=== PATIENT | female | born 1945 | race Caucasian/White ===

== ENCOUNTER 2016-11-17 12:10 | Day surgery (SDC) | payer MEDICARE ==
[2016-11-17 12:45] VITALS: BP 115/65; PULSE 74; RESP 20; TEMP 98.2
--- NOTE | 2016-11-17 14:31 | US ---
ULTRASOUND GUIDED FNA THYROID BIOPSY: CLINICAL HISTORY: 1.5 and 1.2 cm right thyroid nodules FINDINGS: The procedure was explained to the patient. The risks, complications, benefits and alternatives were discussed and any questions were answered. Informed consent was obtained. Patient was placed supin e on the ultrasound table and prepped and draped in the usual sterile fashion. Utilizing a 25 gauge needle, five passes were made into the 2 requested thyroid nodules.. Patient was stable throughout the procedure. Pathology is pending. All elements of maximal barrier technique were utilized. IMPRESSION: 1. Successful ultrasound guided FNA thyroid biopsy.
== END 2016-11-17 14:05 | disposition home or self-care (01) ==
LOC: RADPROMAIN 12:10
PROVIDERS: ATTEND Family Medicine
DX: E04.1 Nontoxic single thyroid nodule (principal)
CPT/HCPCS: 10022; 36415; 76098; 76942; 88173; 88305

== ENCOUNTER → 2018-02-17 | Outpatient (CLI) | payer MEDICARE ==
--- NOTE | 2018-02-17 18:55 | US ---
EXAMINATION TYPE: US carotid duplex BILAT DATE OF EXAM: 02/17/2018 COMPARISON: NONE CLINICAL HISTORY: G43.819 Migraine, intractable, without status...... EXAM MEASUREMENTS: RIGHT: Peak Systolic Velocity (PSV) cm/sec ----- Right CCA: 66.8 ----- Right ICA: 57.2 ----- Right ECA: 55.8 ICA/CCA ratio: 0.9 RIGHT: End Diastole cm/sec ----- Right CCA: 29.3 ----- Right ICA: 31.9 ----- Right ECA: 21.5 LEFT: Peak Systolic Velocity (PSV) cm/sec ----- Left CCA: 58.1 ----- Left ICA: 63.1 ----- Left ECA: 52.4 ICA/CCA ratio: 1.1 LEFT: End Diastole cm/sec ----- Left CCA: 23.2 ----- Left ICA: 34.6 ----- Left ECA: 14.0 VERTEBRALS (direction of flow): Right Vertebral: Antegrade Left Vertebral: Antegrade Rhythm: Normal IMPRESSION: No significant stenosis seen, no elevated velocities. Criteria for Assigning % of Stenosis / Diameter reduction (Estimation based on the indirect measurements of the internal carotid artery velocities (ICA PSV). 1. Normal (no stenosis)=ICA PSV < 125 cm/s: ratio < 2.0: ICA EDV<40 cm/s. 2. Less than 50% stenosis=ICA PSV < 125 cm/s: ratio < 2.0: ICA EDV<40 cm/s. 3. 50 to 69% stenosis=ICA PSV of 125 to 230 cm/s: ration 2.0 ? 4.0: ICA EDV 40-100 cm/s. 4. Greater than 70% stenosis to near occlusion= ICA PSV > 230 cm/s: ratio > 4.0: ICA EDV > 100 cm/s. 5. Near occlusion= ICA PSV velocities may be low or undetectable: variable ratio and ICA EDV. 6. Total occlusion=unable to detect flow.
== END | disposition home or self-care (01) ==
LOC: RADUSWWP 14:54
PROVIDERS: ATTEND Family Medicine
DX: G43.819 Other migraine, intractable, without status migrainosus (principal)
CPT/HCPCS: 93880

== ENCOUNTER → 2018-08-17 | Outpatient (CLI) | payer MEDICARE ==
[2018-08-17 12:41] VITALS: BP 107/78; PULSE 71; TEMP 98.1; BMI 20.5
--- NOTE | 2018-08-17 13:31 | P.PN ---
Progress Note - Text Progress Note Date: 08/17/18 Chief Complaint: vulvar pruritus since 08/08/2018. HPI: this is a 73-year-old with an LMP of 1988. She is status post [facility] for benign reasons. The patient had a craniotomy procedure for a brain tumor on 08/01/2018. She was discharged home on 08/05/2018. On 08/08/2018 she developed vulvar pruritus and a whitish discharge. The symptoms progressively got worse and she went to an urgent care clinic on 08/14/2018. She was prescribed Diflucan and took one pill on 08/14/2018 and 08/16/2018. The symptoms did improve slightly, but she still is having some pruritus. She has not looked to see if there is still a discharge. The last time she used her estrogen vaginal cream was on 08/09/18. ROS: she has not had fever or weakness. : she denies dysuria, but the skin does feel irritated when she wipes. PE: Blood pressure: 107/78, Height: 5'7", Weight: 123 pounds, Temperature: 1, Pulse: 71. This is a well developed, well nourished, white female who is alert and orientedx3, in no acute distress. External genitalia reveals mild to moderate atrophy with minimal erythema. There are no focal lesions. The vagina does reveal a small amount of sick whitish discharge without odor. There is no evidence of prolapse. Wet alessandro are negative for trichomonas or clue cells. Hyphae is present. Impression: 1. Candidate vaginitis, partially treated with Diflucan. This may have developed secondary to perioperative antibiotics which may have been used at the time of her craniotomy. Plan: 1. Terazol 3 cream intravaginally QHS times 3 days. I will also give her a prescription for Kenalog 0.1% cream which she continues externally PRN for vulvar pruritus. The electronic prescription will be sent to [facility] pharmacy in [place]. 2. The patient is to call she has problems. She will also return in October for her annual examination. Time spent with the patient: 15 minutes
== END | disposition home or self-care (01) ==
LOC: WWCWWP 11:37
PROVIDERS: ATTEND Obstetrics & Gynecology
DX: Z53.9 Procedure and treatment not carried out, unspecified reason (principal)

== ENCOUNTER → 2018-10-11 | Outpatient (CLI) | payer MEDICARE ==
[2018-10-11 14:10] VITALS: BP 129/77; PULSE 62; TEMP 96.3; BMI 24.0
--- NOTE | 2018-10-11 14:56 | P.HPOB ---
History of Present Illness H&P Date: 10/11/18 Chief Complaint: The patient is here for her routine gynecologic exam and mammogram. This is a 73-year-old with an LMP of 1988. The patient is status post [facility] for benign reasons. She is without gynecologic complaints. She continues to do well with estradiol cream which she uses for vaginal discomfort and vaginal dryness with sexual activity. Review of Systems Weight has been stable. She denies respiratory, cardiac and G.I. problems. She denies maltreatment or problems with falling. : she denies any significant problems with urinary leakage. 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 Hearing loss after her 2018 had surgery. PAST [employer] HISTORY: She has no history of STDs. She is status post [facility] for benign reasons. History of Any Multi-Drug Resistant Organisms: None Reported Past Surgical History: Hysterectomy ([facility] in 1988), Tonsillectomy Additional Past Surgical History / Comment(s): eye, upper lower eye lid and lasic surgery, endoscopy, colonoscopy 2016(2nd), head surgery for a benign osseous mass 07/2018. Past Anesthesia/Blood Transfusion Reactions: No Reported Reaction Additional Past Anesthesia/Blood Transfusion Reaction / Comment(s): no blood transfusions Past Psychological History: No Psychological Hx Reported Smoking Status: Never smoker Past Alcohol Use History: Rare Past Drug Use History: None Reported Additional History: She has been since 1981 and is sexually active. - Past Family History Father Family Medical History: Chest Pain / Angina, Hyperlipidemia, Hypertension, Myocardial Infarction ([place]) Mother Additional Family Medical History / Comment(s): from [facility] Medications and Allergies Home Medications Medication Instructions Recorded Confirmed Type Estradiol Cream [Estrace Cream] 1 gm VAGINAL Q3D 09/20/14 10/11/18 History Calcium Carbonate [Calcium] 600 mg PO DAILY 11/06/16 10/11/18 History Cholecalciferol (Vitamin D3) 10,000 unit PO DAILY 11/06/16 10/11/18 History [Vitamin D3] Glucosam/Willie-Msm1/C/Romeo/Bosw 2 tab PO DAILY 11/06/16 10/11/18 History [Glucosamine-Chondroitin Tablet] Multivitamins, Thera [Multivitamin] 1 tab PO DAILY 11/06/16 10/11/18 History Propylene Glycol/Peg 400/Pf 1 each OP DAILY 11/06/16 10/11/18 History [Systane 0.3-0.4% Eye Drops] Vitamin E (Dl,Tocopheryl Acet) 400 unit PO DAILY 11/06/16 10/11/18 History [Vitamin E] Allergies Allergy/AdvReac Type Severity Reaction Status Date / Time No Known Allergies Allergy Verified 10/11/18 14:10 Exam Vital Signs Temp Pulse BP 10/11/18 13:47 96.3 F L 62 129/77 Intake and Output 10/10/18 10/11/18 10/11/18 22:59 06:59 14:59 Other: Weight 56.699 kg Height 5 feet 0.5 inches, weight 125 pounds, BMI 24.0. This is a well-developed well-nourished white female who is alert and oriented times 3 in no acute distress. HEENT: she is mildly hard of hearing. HEENT is otherwise within normal limits. NECK: Supple without mass or thyromegaly. CHEST AND LUNGS: Clear to auscultation. HEART: Regular rate and rhythm. BREASTS: Are without mass or discharge. AXILLARY EXAM: Negative for adenopathy. BACK: Negative for CVA tenderness. ABDOMEN: Soft, nontender, without palpable masses. PELVIC EXAM: External genitalia appears normal with mild to moderate atrophy. Vagina appears normal with mild to moderate atrophy. There is no evidence of prolapse. Bimanual examination is negative for mass or tenderness. RECTAL EXAM: Rectovaginal exam is negative for mass or tenderness and is negative for occult blood. EXTREMITIES: Nontender. IMPRESSION: 1. 73-year-old menopausal female status post SARAI for benign reasons with normal gynecologic exam. 2. Improved vaginal dryness with estrogen vaginal cream. PLAN: 1. Pap smears have been discontinued. 2. Self breast awareness was discussed with the patient. 3. Screening mammogram will be done today. 4. She did receive a flu shot this fall. 5. Continue estradiol vaginal cream. The electronic prescription will be sentenced to [facility] pharmacy. 6.Osteoporosis prevention was discussed. I have stressed the importance of adequate calcium, vitamin D and regular exercise. Recommended amounts of calcium and vitamin D were also discussed. She had a normal bone density test on 05/07/2016 and this will be repeated in approximately 2020. 7. She will return in one year.
--- NOTE | 2018-10-13 13:43 | MM ---
Reason for exam: screening (asymptomatic). Last mammogram was performed 1 year ago. History: Patient is postmenopausal. Benign stereotactic core biopsy of the right breast, 1979. Physical Findings: A clinical breast exam by your physician is recommended on an annual basis and results should be correlated with mammographic findings. MG 3D Screening Mammo W/Cad Bilateral CC and MLO view(s) were taken. Prior study comparison: October 19, 2017, right breast MG 3d work up w/cad RT. October 06, 2017, bilateral MG 3d screening mammo w/cad. The breast tissue is heterogeneously dense. This may lower the sensitivity of mammography. Previous mammotome biopsy in the left breast. There is chronic nodularity in the left upper outer quadrant. No significant changes when compared with prior studies. ASSESSMENT: Benign, BI-RAD 2 RECOMMENDATION: Routine screening mammogram of both breasts in 1 year.
== END | disposition home or self-care (01) ==
LOC: WWCWWP 13:40
PROVIDERS: ATTEND Obstetrics & Gynecology
DX: Z12.31 Encounter for screening mammogram for malignant neoplasm of breast (principal)
CPT/HCPCS: 77063; 77067

== ENCOUNTER → 2019-08-04 | Outpatient (CLI) | payer MEDICARE ==
--- NOTE | 2019-08-04 16:54 | CT ---
EXAMINATION TYPE: CT abdomen pelvis wo con DATE OF EXAM: 08/04/2019 COMPARISON: None HISTORY: LLQ and flank pain CT DLP: 494 mGycm Automated exposure control for dose reduction was used. TECHNIQUE: Helical acquisition of images was performed from the lung bases through the pelvis. FINDINGS: Lung bases are clear of infiltrate. There is no pleural effusion. Heart size is normal. There is mild lumbar levoscoliosis. Liver shows no focal defect. There is no evidence of a splenic m ass. Stomach is intact. There is no evidence of pancreatic mass. The bile ducts are not dilated. Gall bladder appears normal. There is no adrenal mass. Kidneys show no hydronephrosis. Ureters are not dilated. There is large ana unt of retained fecal material throughout the colon. There is no retroperitoneal adenopathy. There is no mesenteric edema. There is no ascites or free air. There is no inguinal hernia. Bladder is almost empty. Appendix is not seen. There is no sign of a thickened appendix. There are spondylotic changes in the lumbar spine with multilevel vacuum disc and spur formation. IMPRESSION: NO RENAL STONE OR OBSTRUCTION. NO DILATED DUCTS. CONSTIPATION.
--- NOTE | 2019-08-06 09:47 | XR ---
EXAMINATION TYPE: XR elbow complete RT DATE OF EXAM: 08/04/2019 COMPARISON: None HISTORY: M 77.12 TECHNIQUE: Three-view right elbow FINDINGS: Radius aligns normally with the humerus. Anterior fat pad is normal. No elevation posterior fat pad is evident. Small secondary ossification center along the distal radial aspect of the suprac ondylar humerus. Old avulsion is considered less likely. IMPRESSION: 1. No suspicious acute changes. 2. Suspected secondary ossification center radial aspect distal humerus. Correlate with location of p atient's pain. MRI could be performed additional evaluation would be of benefit.
== END | disposition home or self-care (01) ==
LOC: RADCTMAIN 16:18
PROVIDERS: ATTEND Family Medicine
DX: K59.00 Constipation, unspecified (principal); M77.11 Lateral epicondylitis, right elbow
CPT/HCPCS: 74176

== ENCOUNTER → 2019-09-12 | Outpatient (CLI) | payer MEDICARE ==
--- NOTE | 2019-09-13 07:19 | US ---
EXAMINATION TYPE: US thyroid st tissue head/neck DATE OF EXAM: 09/12/2019 COMPARISON: US 10/20/2016 and 11/17/2016 CLINICAL HISTORY: E04.1 thyroid nodule. GLAND SIZE: Right Lobe: 4.2 x 1.9 x 1.5 cm Overall Parenchyma: heterogenous Left Lobe: 4.4 x 1.4 x 1.1 cm Overall Parenchyma: heterogeneous Isthmus Thickness: 0.3 cm NODULES 1. 1.8 x 1.2 x 1.6cm hyperechoic solid nodule at the mid pole with well-defined margins. This nodule is wider than tall and shows intranodular vascularity. Prior size: 1.4 x 1.2 x 1.5 cm 2. 1.1 x 1.2 x 0.8 hyperechoic nodule at the lower pole with well-defined margins. This nodule is t aller than wide and shows intranodular vascularity. Prior size: 1.1 x 0.6 x 0.6 cm Prior fine-needle aspiration has been performed of both nodules on 11/17/2016. Bilateral neck scanned, no evidence of lymphadenopathy. IMPRESSION: Slight interval growth of the thyroid nodules, both previously biopsied on 11/17/2016.
== END | disposition home or self-care (01) ==
LOC: RADUSWWP 16:41
PROVIDERS: ATTEND Family Medicine
DX: E04.2 Nontoxic multinodular goiter (principal)
CPT/HCPCS: 76536

== ENCOUNTER → 2019-10-24 | Outpatient (CLI) | payer MEDICARE ==
[2019-10-24 09:21] VITALS: BP 133/84; PULSE 69; RESP 18; TEMP 97.6
--- NOTE | 2019-10-24 09:59 | P.HPOB ---
History of Present Illness H&P Date: 10/24/19 Chief Complaint: The patient is here for her routine gynecologic exam and ma mmogram. This is a 74-year-old with an LMP of 1988. The patient is status post SARAI for benign reasons. The patient is without gynecologic complaints and states she is doing well with vaginal estrogen cream which she uses for vaginal discomfort and vaginal dryness associated with sexual activity. Review of Systems she has lost 11 pounds over the past year. She denies respiratory, cardiac and G.I. problems. She denies maltreatment or problems with falling. : she denies any significant problems with urinary leakage, but occasionally has to get to the bathroom right away.She states that ketal exercises helps with bladder control. 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 Hearing loss after her 2018 had surgery. PAST [employer] HISTORY: She has no history of STDs. She is status post SARAI for benign reasons. History of Any Multi-Drug Resistant Organisms: None Reported Past Surgical History: Hysterectomy, Tonsillectomy Additional Past Surgical History / Comment(s): SARAI 1988. Eye, upper lower eye lid and lasic surgery, endoscopy, colonoscopy 2017(2nd, next after 5yr), head surgery for a benign osseous mass 07/2018. Past Anesthesia/Blood Transfusion Reactions: No Reported Reaction Additional Past Anesthesia/Blood Transfusion Reaction / Comment(s): no blood transfusions Past Psychological History: No Psychological Hx Reported Smoking Status: Never smoker Past Alcohol Use History: None Reported Past Drug Use History: None Reported Additional History: she has been since 1981 and is sexually active. She enjoys playing pickleball for exercise. - Past Family History Father Family Medical History: Chest Pain / Angina, Hyperlipidemia, Hypertension, Myocardial Infarction ([place]) Mother Additional Family Medical History / Comment(s): from [facility] Medications and Allergies Home Medications Medication Instructions Recorded Confirmed Type Calcium Carbonate [Calcium] 600 mg PO DAILY 11/06/16 10/24/19 History Cholecalciferol (Vitamin D3) 10,000 unit PO DAILY 11/06/16 10/24/19 History [Vitamin D3] Glucosam/Willie-Msm1/C/Romeo/Bosw 2 tab PO DAILY 11/06/16 10/24/19 History [Glucosamine-Chondroitin Tablet] Multivitamins, Thera [Multivitamin] 1 tab PO DAILY 11/06/16 10/24/19 History Propylene Glycol/Peg 400/Pf 1 each OP DAILY 11/06/16 10/24/19 History [Systane 0.3-0.4% Eye Drops] Vitamin E (Dl,Tocopheryl Acet) 400 unit PO DAILY 11/06/16 10/24/19 History [Vitamin E] Estradiol Cream [Estrace Cream 1 gm VAGINAL DIRECTED 90 Days 10/11/18 10/24/19 Rx 0.01%] #1 tube Famotidine [Pepcid] 10 mg PO DAILY PRN 10/24/19 10/24/19 History Loratadine [Claritin] 10 mg PO DAILY 10/24/19 10/24/19 History Allergies Allergy/AdvReac Type Severity Reaction Status Date / Time No Known Allergies Allergy Verified 10/24/19 09:21 Exam Vital Signs Temp Pulse Resp BP Pulse Ox 10/24/19 09:16 97.6 F 69 18 133/84 99 Intake and Output 10/23/19 10/24/19 10/24/19 22:59 06:59 14:59 Other: Weight 51.71 kg height 5 feet 5 inches, weight 114 pounds, BMI 19.0. This is a well-developed well-nourished White female who is alert and oriented times 3 in no acute distress. HEENT: Within normal limits. NECK: Supple without mass or thyromegaly. CHEST AND LUNGS: Clear to auscultation. HEART: Regular rate and rhythm. BREASTS: Are without mass or discharge. AXILLARY EXAM: Negative for adenopathy. BACK: Negative for CVA tenderness. ABDOMEN: Soft, nontender, without palpable masses. PELVIC EXAM: External genitalia appears normal with mild atrophy. Vagina appears normal with mild atrophy. There is no evidence of prolapse. Bimanual examination is negative for mass or tenderness. RECTAL EXAM: Rectovaginal exam is negative for mass or tenderness and is negative for occult blood. EXTREMITIES: Nontender. IMPRESSION: 1. 74-year-old menopausal female who is status post [facility] for benign reasons with normal gynecologic exam. 2. doing well with estradiol vaginal cream used for vaginal dryness associated with sexual intercourse. PLAN: 1. Pap smears have been discontinued. 2. Self breast awareness was discussed with the patient. 3. screening mammogram will be done today. 4. Osteoporosis prevention was discussed. I have stressed the importance of ad equate calcium, vitamin D and regular exercise. Recommended amounts of calcium and vitamin D were also discussed. Repeat bone density testing in approximately 2 years since she had a normal one on 05/07/2016. 5. continue estradiol vaginal cream, 1 g intravaginally 2 times a week. The electronic prescription will be sent to [facility] pharmacy. 6. The patient was advised to return in 1-2 years for her well woman examination.
--- NOTE | 2019-10-25 14:33 | MM ---
Reason for exam: screening (asymptomatic). Last mammogram was performed 1 year ago. History: Patient is postmenopausal. Benign stereotactic core biopsy of the right breast, 1979. Physical Findings: A clinical breast exam by your physician is recommended on an annual basis and results should be correlated with mammographic findings. MG 3D Screening Mammo W/Cad Bilateral CC and MLO view(s) were taken. Prior study comparison: October 11, 2018, bilateral MG 3d screening mammo w/cad. October 19, 2017, right breast MG 3d work up w/cad RT. The breast tissue is extremely dense which could obscure a lesion on mammography. There are benign appearing vascular calcifications in the left breast. Previous mammotome biopsy in the left breast. There is no discrete abnormality. ASSESSMENT: Benign, BI-RAD 2 RECOMMENDATION: Routine screening mammogram of both breasts in 1 year.
== END | disposition home or self-care (01) ==
LOC: WWCWWP 09:10
PROVIDERS: ATTEND Obstetrics & Gynecology
DX: Z12.31 Encounter for screening mammogram for malignant neoplasm of breast (principal)
CPT/HCPCS: 77063; 77067

== ENCOUNTER → 2019-11-15 | Outpatient (CLI) | payer MEDICARE ==
--- NOTE | 2019-11-16 01:28 | MR ---
EXAMINATION TYPE: MR elbow RT wo con DATE OF EXAM: 11/15/2019 COMPARISON: None HISTORY: R elbow pain in posterior lateral area after injury Multiplanar multiecho imaging of the right elbow was performed without contrast. The biceps tendon is intact. Brachialis tendon is intact. Elbow joint spaces are fairly normal. There is no evidence of any significant joint effusion. There is no evidence of soft tissue mass. I see no fracture nor dislocation. Joint spaces are fairly normal. There is minimal subcutaneous edema over t he posterior proximal ulna on the medial aspect. The triceps tendon is intact. There is mild subcutan eous edema over the posterior proximal shaft of the ulna. The collateral ligaments appear intact. IMPRESSION: No fracture. No evidence of ligament or tendon tear. Subcutaneous edema over the posterior elbow as a dex.
== END | disposition home or self-care (01) ==
LOC: RADMRIMAIN 14:15
PROVIDERS: ATTEND Family Medicine
DX: M25.521 Pain in right elbow (principal); R60.9 Edema, unspecified

== ENCOUNTER → 2020-09-13 | Outpatient (CLI) | payer MEDICARE | END | disposition home or self-care (01) | LOC: LABWHC1 14:17 | PROVIDERS: ATTEND Family Medicine | DX: Z20.828 Contact with and (suspected) exposure to other viral communicable diseases (principal) | CPT/HCPCS: 87502; U0003; C9803 ==

== ENCOUNTER → 2020-11-19 | Outpatient (CLI) | payer MEDICARE ==
[2020-11-19 12:56] VITALS: BP 115/80; PULSE 72; RESP 18; TEMP 97.9
--- NOTE | 2020-11-19 13:26 | P.HPOB ---
History of Present Illness H&P Date: 11/19/20 Chief Complaint: The patient is here for her routine gynecologic exam and ma mmogram. This is a 75-year-old 011 with an LMP of 1988. The patient is status post SARAI for benign reasons. The patient is without gynecologic complaints. She is again requesting a prescription for estrogen vaginal cream which has helped with her vaginal dryness. Review of Systems She has been about 6 pounds over the past year. She denies respiratory, cardiac and G.I. problems. She denies maltreatment or problems with falling. : Occasional slight urinary leakage when her bladder is full and she says kegal exercises help with this. 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 Hearing loss after her 2018 had surgery. Small aortic aneurysm followed conservatively. 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 She is status post SARAI for benign reasons. History of Any Multi-Drug Resistant Organisms: None Reported Past Surgical History: Hysterectomy, Tonsillectomy Additional Past Surgical History / Comment(s): SARAI 1988. Eye, upper lower eye lid and lasic surgery, endoscopy, colonoscopy 2017(2nd, next after 5yr), head surgery for a benign osseous mass 07/2018. Past Anesthesia/Blood Transfusion Reactions: No Reported Reaction Additional Past Anesthesia/Blood Transfusion Reaction / Comment(s): no blood transfusions Past Psychological History: No Psychological Hx Reported Smoking Status: Never smoker Past Alcohol Use History: None Reported Past Drug Use History: None Reported Additional History: She has been since 1981. Her recently has been on dialysis for renal failure. - Past Family History Father Family Medical History: Chest Pain / Angina, Hyperlipidemia, Hypertension, Myocardial Infarction ([place]) Mother Additional Family Medical History / Comment(s): from [facility] Medications and Allergies Home Medications Medication Instructions Recorded Confirmed Type Calcium Carbonate [Calcium] 600 mg PO DAILY 11/06/16 11/19/20 History Cholecalciferol (Vitamin D3) 10,000 unit PO DAILY 11/06/16 11/19/20 History [Vitamin D3] Glucosam/Willie-Msm1/C/Romeo/Bosw 2 tab PO DAILY 11/06/16 11/19/20 History [Glucosamine-Chondroitin Tablet] Multivitamins, Thera [Multivitamin] 1 tab PO DAILY 11/06/16 11/19/20 History Propylene Glycol/Peg 400/Pf 1 each OP DAILY 11/06/16 11/19/20 History [Systane 0.3-0.4% Eye Drops] Vitamin E (Dl,Tocopheryl Acet) 400 unit PO DAILY 11/06/16 11/19/20 History [Vitamin E] Famotidine [Pepcid] 10 mg PO DAILY PRN 10/24/19 11/19/20 History Estradiol Cream [Estrace Cream 1 gm VAGINAL DIRECTED 90 Days 10/25/19 11/19/20 Rx 0.01%] #1 tube Allergies Allergy/AdvReac Type Severity Reaction Status Date / Time No Known Allergies Allergy Verified 11/19/20 12:49 Exam Vital Signs Temp Pulse Resp BP Pulse Ox 11/19/20 12:51 97.9 F 72 18 115/80 98 Intake and Output 11/18/20 11/19/20 11/19/20 22:59 06:59 14:59 Other: Weight 54.431 kg Height 5 feet 4 inches, weight 120 pounds, BMI 20.6. This is a well-developed well-nourished white female who is alert and oriented times 3 in no acute distress. HEENT: Within normal limits. NECK: Supple without mass or thyromegaly. CHEST AND LUNGS: Clear to auscultation. HEART: Regular rate and rhythm. BREASTS: Are without mass or discharge. AXILLARY EXAM: Negative for adenopathy. BACK: Negative for CVA tenderness. ABDOMEN: Soft, nontender, without palpable masses. PELVIC EXAM: External genitalia appears normal with mild to moderate atrophy. Vagina appears normal mild atrophy. There is no evidence of prolapse. Bimanual examination is negative for mass or tenderness. RECTAL EXAM: Rectovaginal exam is negative for mass or tenderness and is negative for occult blood. EXTREMITIES: Nontender. IMPRESSION: 1. 75-year-old menopausal female who is status post SARAI for benign reasons with normal gynecologic exam. 2. Doing well with estradiol vaginal cream for vaginal dryness. PLAN: 1. Pap smears have been discontinued. 2. Self breast awareness was discussed with the patient. 3. Screening mammogram will be done today. 4. Estradiol vaginal cream 1 g into the vagina 2 times weekly. This is compounded for her at a specialty pharmacy. The electronic prescription will be sent to [facility]'s pharmacy in [place]. 5. Osteoporosis prevention was discussed. I have stressed the importance of adequate calcium, vitamin D and regular exercise. Recommended amounts of calcium and vitamin D were also discussed. She had a normal bone density test in 2016. We will plan on repeating this next year. 6. She was advised to return in one year for her annual well woman exam.
--- NOTE | 2020-11-21 13:56 | MM ---
Reason for exam: screening (asymptomatic). Last mammogram was performed 1 year and 1 month ago. History: Patient is postmenopausal. Benign stereotactic core biopsy of the right breast, 1979. Physical Findings: A clinical breast exam by your physician is recommended on an annual basis and results should be correlated with mammographic findings. MG 3D Screening Mammo W/Cad Bilateral CC and MLO view(s) were taken. Prior study comparison: October 24, 2019, bilateral MG 3d screening mammo w/cad. October 11, 2018, bilateral MG 3d screening mammo w/cad. The breast tissue is heterogeneously dense. This may lower the sensitivity of mammography. Previous mammotome biopsy in the left breast. Medial, anterior left CC nodularity is unchanged. No significant changes when compared with prior studies. ASSESSMENT: Benign, BI-RAD 2 RECOMMENDATION: Routine screening mammogram of both breasts in 1 year.
== END | disposition home or self-care (01) ==
LOC: WWCWWP 12:40
PROVIDERS: ATTEND Obstetrics & Gynecology
DX: Z12.31 Encounter for screening mammogram for malignant neoplasm of breast (principal)
CPT/HCPCS: 77063; 77067

== ENCOUNTER 2021-07-02 07:23 | Day surgery (SDC) | payer MEDICARE ==
[~2021-07-02 07:23] MED LIST: LACTATED RINGERS 1,000 ML IV SCH
[2021-07-02 07:56] VITALS: TEMP 97.6
[2021-07-02] MEDS ORDERED: PROPOFOL 10 MG/ML 20 ML VIAL IV ONE (08:20)
[2021-07-02] MEDS ORDERED: LIDOCAINE 1% INJ 10MG/ML (20 ML MDV) ONE (08:20)
--- NOTE | 2021-07-02 08:37 | P.PCN ---
Date of Procedure: 07/02/21 Procedure(s) Performed: BRIEF HISTORY: Patient is a 75-year-old, pleasant, white female scheduled for an upper endoscopy as a part of evaluation of atypical chest pain, epigastric discomfort and esophageal spasms on and off for the last 3-4 years duration.. PROCEDURE PERFORMED: Esophagogastroduodenoscopy with biopsy. PREOPERATIVE DIAGNOSIS: Epigastric pain/atypical chest pain and esophagus.. IV sedation per anesthesia. PROCEDURE: After informed consent was obtained, the patient was brought into the endoscopy unit. IV sedation was administered by Anesthesia under continuous monitoring. Initially the Olympus GIF-140 video endoscope was inserted into the mouth. Esophagus intubated without any difficulty. It was gradually advanced into the stomach and duodenum and carefully examined. The bulb and the second part of the duodenum appeared normal. The scope at this time was withdrawn to the stomach, adequately insufflated with air, and upon careful examination, mucosa of the antrum, had mild to moderate gastritis and biopsies were done from this area. The body, cardia and the fundus appeared normal. The scope was then withdrawn into the esophagus. The GE junction was located at 39 cm from the incisors. The esophagus appeared normal. There were no erosions or ulcerations seen, biopsies were done from the mid and distal esophagus and the patient tolerated the procedure well. IMPRESSION: 1. Normal-appearing esophagus with no evidence of esophagitis or esophageal stricture. 2. Mild to moderate antral gastritis. RECOMMENDATIONS: The findings of this examination were discussed with the patient as well as a family. She was advised to follow with the biopsy results. She'll continue with Pepcid 20 mg twice daily and follow antireflux measures..
[2021-07-02 08:56] VITALS: RESP 16
[2021-07-02 09:11] VITALS: BP 120/70; PULSE 62
== END 2021-07-02 09:14 | disposition home or self-care (01) ==
LOC: ORWHC2ENDO 07:23
PROVIDERS: ATTEND Internal Medicine Gastroenterology
DX: R13.10 Dysphagia, unspecified (principal); K29.50 Unspecified chronic gastritis without bleeding; K21.9 Gastro-esophageal reflux disease without esophagitis; R07.89 Other chest pain; Z79.899 Other long term (current) drug therapy
CPT/HCPCS: 88305; 43239; J2001; J2704

== ENCOUNTER 2022-01-07 09:41 | Day surgery (SDC) | payer MEDICARE ==
[2022-01-06 08:25] VITALS: BMI 19.7
[2022-01-07 10:10] VITALS: TEMP 97.3
[2022-01-07] MEDS ORDERED: LIDOCAINE 1% (10MG/ML) FOR IV START INTRADERMA ONE (10:15)
[2022-01-07] MEDS ORDERED: PROPOFOL 10 MG/ML 20 ML VIAL IV ONE (10:25)
[2022-01-07] MEDS ORDERED: LIDOCAINE 1% INJ 10MG/ML (20 ML MDV) ONE (10:25)
--- NOTE | 2022-01-07 10:59 | P.PCN ---
Date of Procedure: 01/07/22 Procedure(s) Performed: BRIEF HISTORY: Patient is a 76-year-old pleasant female scheduled for an elective colonoscopy as a part of screening for colorectal neoplasia. PROCEDURE PERFORMED: Colonoscopy with snare polypectomy. PREOPERATIVE DIAGNOSIS: Screening for colon cancer. IV sedation per Anesthesia. PROCEDURE: After informed consent was obtained, the patient, was brought into the endoscopy unit. IV sedation was administered by Anesthesia under continuous monitoring. Digital rectal examination was normal. Initially the Olympus CF-160 flexible video pediatric colonoscope was then inserted in the rectum, gradually advanced into the cecum with moderate to severe difficulty. Careful examination was performed as the scope was gradually being withdrawn. Ileocecal valve and the appendiceal orifice were visualized and appeared normal. Prep was excellent. Mucosa of the cecum, ascending colon, transverse colon, descending colon, sigmoid colon, and rectum appeared normal. Retroflexion was performed in the rectum and no lesions were seen. The patient tolerated the procedure well. IMPRESSION: 5 mm ascending colon polyp status post polypectomy. Rest of the colon appeared normal RECOMMENDATIONS: Findings of this examination were discussed with the patient as well as a family. She was advised to follow with the biopsy results. If the biopsy results adenoma she can have a repeat colonoscopy in 5 years
[2022-01-07 11:30] VITALS: RESP 16
[2022-01-07 11:48] VITALS: BP 142/86; PULSE 74
== END 2022-01-07 11:58 | disposition home or self-care (01) ==
LOC: ORWHC2ENDO 09:41
PROVIDERS: ATTEND Internal Medicine Gastroenterology
DX: D12.2 Benign neoplasm of ascending colon (principal); I71.4 Abdominal aortic aneurysm, without rupture; Z86.010 Personal history of colon polyps
CPT/HCPCS: 45385; 88305; J2001; J2704

== ENCOUNTER → 2023-02-16 | Outpatient (CLI) | payer MEDICARE ==
[2023-02-16 14:02] VITALS: BP 115/77; PULSE 70; RESP 16; TEMP 98.1
--- NOTE | 2023-02-16 17:17 | P.HPOB ---
History of Present Illness H&P Date: 02/16/23 Chief Complaint: The patient is here for her routine gynecologic exam and ma mmogram. This is a 77-year-old 011 with an LMP of 1988. The patient is status post SARAI for benign reasons. She has a known cystocele. She states she has noticed some bulging that comes to the vaginal opening, but not outside of the opening. She has been using estradiol vaginal cream for vaginal dryness and would like to continue this. She is a since 2021 and is no longer sexually active. Review of Systems The patient has lost 5 pounds over the last year. She denies respiratory, cardiac, or G.I. problems. 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 History of Any Multi-Drug Resistant Organisms: None Reported Past Surgical History: Hysterectomy, Tonsillectomy Additional Past Surgical History / Comment(s): EGD., colonoscopy 2021(next after 5yr), tumor removed from back of rt eye, lasik eye surgery, fatty tissue removed from eyelids. [facility] 1988. Past Anesthesia/Blood Transfusion Reactions: No Reported Reaction Additional Past Anesthesia/Blood Transfusion Reaction / Comment(s): . Past Psychological History: No Psychological Hx Reported Smoking Status: Never smoker Past Alcohol Use History: None Reported Past Drug Use History: None Reported Additional History: She has been a since 2021. She has not been sexually active since 2019. - Past Family History Father Family Medical History: Chest Pain / Angina, Hyperlipidemia, Hypertension, Myocardial Infarction ([place]) Mother Additional Family Medical History / Comment(s): from [facility] Medications and Allergies Home Medications Medication Instructions Recorded Confirmed Type Glucosam/Willie-Msm1/C/Romeo/Bosw 1 tab PO DAILY 11/06/16 02/16/23 History [Glucosamine-Chondroitin Tablet] Propylene Glycol/Peg 400/Pf 1 each OP DIRECTED 11/06/16 02/16/23 History [Systane 0.3-0.4% Eye Drops] Vitamin E (Dl,Tocopheryl Acet) 400 unit PO DAILY 11/06/16 02/16/23 History [Vitamin E] Acetaminophen [Tylenol Extra 500 mg PO DIRECTED PRN 06/27/21 02/16/23 History Strength] Calcium Carbonate [Calcium] 1,200 mg PO DAILY 06/27/21 02/16/23 History Cetirizine HCl [Zyrtec] 10 mg PO HS 06/27/21 02/16/23 History Cholecalciferol [Vitamin D3 (25 50 mcg PO DAILY 06/27/21 02/16/23 History Mcg = 1000 Iu)] Famotidine [Pepcid] 20 mg PO DAILY PRN 06/27/21 02/16/23 History Multivit with Calcium,Iron,Min 1 each PO DAILY 06/27/21 02/16/23 History [Women's Multivitamin] [place]-3 Fatty Acids [[place]-3] 1,000 mg PO DAILY 06/27/21 02/16/23 History Estradiol Cream [Estrace Cream 1 gm VAGINAL DIRECTED 90 Days 02/10/22 02/16/23 Rx 0.01%] #1 each Allergies Allergy/AdvReac Type Severity Reaction Status Date / Time No Known Allergies Allergy Verified 02/16/23 13:51 Exam Vital Signs Temp Pulse Resp BP Pulse Ox 02/16/23 13:58 98.1 F 70 16 115/77 99 Intake and Output 02/16/23 02/16/23 02/16/23 06:59 14:59 22:59 Other: Weight 50.349 kg Height 5 feet 5 inches, weight 111 pounds, BMI 18.5. This is a well-developed thin white female who is alert and oriented times 3 in no acute distress. HEENT: Within normal limits. NECK: Supple without mass or thyromegaly. CHEST AND LUNGS: Clear to auscultation. HEART: Regular rate and rhythm. BREASTS: Are without mass or discharge. AXILLARY EXAM: Negative for adenopathy. BACK: Negative for CVA tenderness. ABDOMEN: Soft, nontender, without palpable masses. PELVIC EXAM: External genitalia appears normal with moderate atrophy. Vagina mucosa appears normal with mild atrophy. There is no significant prolapse noted at rest. With Valsalva there is a grade 2 cystocele, which is unchanged from her previous exam. There is no significant rectocele. The vaginal cuff is well supported. Bimanual examination is negative for mass or tenderness. RECTAL EXAM: Rectovaginal exam is negative for mass or tenderness and is negative for occult blood. EXTREMITIES: Nontender. IMPRESSION: 1. 77-year-old menopausal female status post SARAI for benign reasons with stable grade 2 cystocele. 2. The patient is doing well with estradiol vaginal cream which seems to help with her vaginal dryness and incontinence. PLAN: 1. Pap smears have been discontinued. 2. Self breast awareness was discussed with the patient. We have also discussed symptoms associated with inflammatory breast cancer. 3. Screening mammogram will be done today. 4. She will continue estradiol vaginal cream 1 g into the vagina twice weekly. She would like to continue to use a compounded form of estradiol vaginal cream which has been dispensed by [facility]. The prescription will be sent to this pharmacy. 5. We have had a long discussion regarding the cystocele. At this time I do not think it is causing her any significant problems and has not changed significantly from her last exam. We have discussed negative Valsalva exercises which I will have her do on a regular basis when she feels a bulging sensation and prior to voiding. She will call if this is progressing. The ACOG handout on pelvic prolapse was given to the patient. 6. She was advised to return in one year for her annual well woman exam and as needed.
--- NOTE | 2023-02-17 09:18 | MM ---
Reason for Exam: Screening (asymptomatic). Last screening mammogram was performed 12 month(s) ago. Patient History: Menarche at age 13. First Full-Term at age 28. Hysterectomy at age 50. Postmenopausal. Patient has history of breast feeding. 1979, Benign Stereotactic Core Biopsy on the right side. Risk Values: [place] 5 year model risk: 2.3%. NCI Lifetime model risk: 4.4%. Prior Study Comparison: 10/24/2019 Bilateral Screening Mammogram, [facility]. 11/19/2020 Bilateral Screening Mammogram, [facility]. 02/10/2022 Bilateral Screening Mammogram, [facility]. Tissue Density: The breast tissue is heterogeneously dense. This may lower the sensitivity of mammography. Findings: Analyzed By CAD. Left breast biopsy clip. There is no suspicious group of microcalcifications or new suspicious mass in either breast. Overall Assessment: Negative, BI-RAD 1 Management: Screening Mammogram of both breasts in 1 year. A clinical breast exam by your physician is recommended on an annual basis and results should be correlated with mammographic findings. [facility] will attempt to contact patient to return for supplemental views and ultrasound if indicated. Electronically signed and approved by: Jaydon Sibley DO
== END ==
LOC: WWCWWP 13:41
PROVIDERS: ATTEND Obstetrics & Gynecology
DX: Z12.31 Encounter for screening mammogram for malignant neoplasm of breast (principal); Z01.419 Encounter for gynecological examination (general) (routine) without abnormal findings; I48.91 Unspecified atrial fibrillation; K21.9 Gastro-esophageal reflux disease without esophagitis; M19.90 Unspecified osteoarthritis, unspecified site; N99.3 Prolapse of vaginal vault after hysterectomy; Z79.890 Hormone replacement therapy; Z82.49 Family history of ischemic heart disease and other diseases of the circulatory system; Z83.49 Family history of other endocrine, nutritional and metabolic diseases
CPT/HCPCS: 77063; 77067

== ENCOUNTER → 2023-05-20 | Outpatient (CLI) | payer MEDICARE ==
[2023-05-21 02:14] LABS: HCT 42.7 % (37.2-46.3); HGB 13.7 d/dL (12.0-15.0); MCH 31.9 pg (27.0-32.0); MCHC 32.1 d/dL (32.0-37.0); MCV 99.5 FL (80.0-97.0); Mean Platelet Volume 10.7 FL (9.5-12.2); NRBC Per 100 WBC 0 X 10*3/uL (0.00-0.01); Platelet Count 169 X 10*3/uL (140-440); RBC 4.29 X 10*6/uL (4.10-5.20); RDW 13.2 % (11.5-14.5); WBC 5.61 X 10*3/uL (4.50-10.00)
[2023-05-21 03:30] LABS: Blood Urea Nitrogen 19.2 mg/dL (9.0-27.0); Carbon Dioxide 27.7 mmol/L (21.6-31.8); Chloride 102 mmol/L (96-109); Potassium 4.5 mmol/L (3.5-5.5); Sodium 140 mmol/L (135-145)
== END | disposition home or self-care (01) ==
LOC: LABPAT 13:49
PROVIDERS: ATTEND Internal Medicine
DX: Z01.812 Encounter for preprocedural laboratory examination (principal); I35.1 Nonrheumatic aortic (valve) insufficiency
CPT/HCPCS: 80051; 82565; 84520; 85027

== ENCOUNTER → 2023-06-29 | Outpatient (CLI) | payer MEDICARE ==
[2023-06-29 11:44] VITALS: BP 128/80; PULSE 69; RESP 17; TEMP 97.6
--- NOTE | 2023-06-29 14:34 | P.PN ---
Progress Note - Text Progress Note Date: 06/29/23 Chief Complaint: Bulge noted to the vaginal opening about 2 weeks ago. HPI: This is a 77-year-old 011 with an LMP of 1988. The patient has a known cystocele. She states she has noticed more bulging at the vaginal opening at times. This has been more noticeable over the past 4 months. She was seen on 02/16/2023 for her annual well woman examination and was found to have a stable grade 2 cystocele at that time. She states at times she can notice something protruding to the vaginal opening that she can actually touch. It does not bulge outside of the vaginal opening. She notices this more when she has been on her feet for a long time or when she is more active. She denies any pain, however, she is notice a slight burning in the vaginal area. She denies urinary frequency or urinary urgency. The burning is not specifically at the urinary opening, but thinks the vaginal tissue may be irritated when it comes into contact with urine. ROS: She denies respiratory, cardiac, or GI problems. : As above. PE: Blood pressure: 128/80, Height: 5 feet 3 inches, Weight: 107 pounds, Temperature: 97 points the, Pulse: 69. Pulse oximeter 100%. This is a well developed, well nourished, white female who is alert and orientedx3, in no acute distress. External genitalia reveals mild to moderate atrophy without lesions. Pelvic exam: The vaginal mucosa appears normal without significant thickening or excoriation. The vaginal cuff seems well supported. There is a grade 1-2 c ystocele noted at rest. With Valsalva the cystocele approaches the introitus without bulging outside of the introitus. There is no significant rectocele or enterocele. There are no palpable adnexal masses or tenderness. Impression: 1. 77-year-old menopausal female status post SARAI for benign reasons, with a mildly symptomatic grade 2-3 cystocele. 2. Occasional genital burning sensation noted after urinating without other UTI symptoms. Plan: 1. Urine has been obtained for urinalysis and urine culture with sensitivities. 2. We have had a long discussion regarding the cystocele which has become mildly symptomatic. We have discussed various options including conservative management, pessary use, and surgical repair. She will continue to do ketal exercises and I have given her instructions on negative Valsalva exercises as well. She would like to discuss this with a petroleum production engineer to can do the surgical repair. She will be referred to to Dr. Cheatham for evaluation and possible treatment. Time spent with the patient: 20 minutes
[2023-06-30 02:07] LABS: Appearance,Urine Clear (Clear); Bilirubin,Urine Negative (Negative); Blood,Urine Negative (Negative); Color,Urine Yellow (Yellow); Ketones,Urine Negative (Negative); Nitrite,Urine Negative (Negative); Specific Gravity,Urine 1.011 (1.001-1.030); Urobilinogen,Urine 0.2 E.U./DL
--- NOTE | 2023-06-30 09:58 | P.PN ---
Progress Note - Text Progress Note Date: 06/30/23 OUTPATIENT FOLLOW-UP NOTE TEST(S)/RESULTS: Urinalysis done on 06/29/2023 was negative. METHOD OF NOTIFICATION: A message with this result was left on the patient's voicemail on 06/30/2023. PATIENT COMMENTS: DIAGNOSIS: Negative urinalysis. DISCUSSION: PLAN: Urine culture is pending.
== END ==
LOC: WWCWWP 11:22
PROVIDERS: ATTEND Obstetrics & Gynecology
DX: N81.10 Cystocele, unspecified (principal); N32.9 Bladder disorder, unspecified
CPT/HCPCS: 81003; 87086

== ENCOUNTER → 2023-08-14 | Outpatient (CLI) | payer MEDICARE ==
[2023-08-14 22:55] LABS: Basophils # (A) 0.01 X 10*3/uL (0.00-0.10); Basophils % (A) 0.2 %; Eosinophils # (A) 0.04 X 10*3/uL (0.04-0.35); Eosinophils % (A) 0.7 %; HCT 43.1 % (37.2-46.3); HGB 13.9 d/dL (12.0-15.0); Lymphocytes # (A) 1.46 X 10*3/uL (0.90-5.00); Lymphocytes % (A) 26.4 %; MCH 31.8 pg (27.0-32.0); MCHC 32.3 d/dL (32.0-37.0); MCV 98.6 FL (80.0-97.0); Mean Platelet Volume 10.9 FL (9.5-12.2); Monocytes # (A) 0.45 X 10*3/uL (0.20-1.00); Monocytes % (A) 8.1 %; NRBC Per 100 WBC 0 X 10*3/uL (0.00-0.01); Neutrophils # (A) 3.57 X 10*3/uL (1.80-7.70); Neutrophils % (A) 64.4 %; Platelet Count 173 X 10*3/uL (140-440); RBC 4.37 X 10*6/uL (4.10-5.20); RDW 12.9 % (11.5-14.5); WBC 5.54 X 10*3/uL (4.50-10.00)
[2023-08-14 23:08] LABS: Blood Urea Nitrogen 18.2 mg/dL (9.0-27.0); Carbon Dioxide 28.3 mmol/L (21.6-31.8); Chloride 103 mmol/L (96-109); Sodium 140 mmol/L (135-145)
== END | disposition home or self-care (01) ==
LOC: LABPAT 11:36
PROVIDERS: ATTEND Obstetrics & Gynecology
DX: Z01.812 Encounter for preprocedural laboratory examination (principal); N81.11 Cystocele, midline
CPT/HCPCS: 80051; 82565; 84520; 85025; 86850; 86900; 86901; 87086

== ENCOUNTER 2023-08-24 07:40 | Day surgery (SDC) | payer MEDICARE ==
--- NOTE | 2023-08-23 21:44 | HP ---
HISTORY AND PHYSICAL DATE OF SURGERY: 08/24/2023. HISTORY OF PRESENT ILLNESS: The patient is a 78-year-old, 2, para 1-0-1-1, referred by Dr. Ryan for evaluation of a cystocele. She reports that she has had approximately 1 year of increasing symptoms of prolapse, which primarily she feels includes the bladder. This causes her significant pressure and discomfort and has been increasing over time. She has additionally had recent urinary tract infections that have required treatment. She is no longer sexually active, but may consider resuming sexual activity somewhere in the future and would like to keep that as an option. She has undergone hysterectomy in the past. PAST MEDICAL HISTORY: Significant for an abdominal aortic aneurysm, asthma, gastroesophageal reflux, migraine headaches, mitral valve prolapse, arthritis, and urinary incontinence. PAST SURGICAL HISTORY: Significant for an eye surgery, hysterectomy, and tonsillectomy. There were apparently no anesthetic concerns. OBSTETRICAL HISTORY: 2, para 1-0-1-1 with 1 early miscarriage and 1 full-term delivery. GYNECOLOGIC HISTORY: Unremarkable with no history of any infections to include STDs. She did have hysterectomy years ago and now complains of prolapse symptoms as noted in the history of present illness. FAMILY HISTORY: Noncontributory. SOCIAL HISTORY: The patient is and is a nonsmoker. She denies any significant alcohol or any other social concerns. CURRENT MEDICATIONS: Include: 1. Calcium daily. 2. Vitamin D daily. 3. Vaginal estrogen twice weekly. 4. Famotidine 20 mg as needed. 5. Glucosamine daily. 6. Multivitamin daily. 7. [place]-3 fatty acids daily. 8. Vitamin E daily. 9. Systane high-performance daily. ALLERGIES: No known drug allergies. REVIEW OF SYSTEMS: Confined to history of present illness. PHYSICAL EXAMINATION: VITAL SIGNS: Stable. The patient is afebrile. GENERAL: This is a well-developed, well-nourished white female, in no acute distress. HEART: Has a regular rhythm and rate without murmur. LUNGS: Clear to auscultation bilaterally in all garcia. ABDOMEN: Nondistended. Has normoactive bowel sounds. Soft and nontender without any palpable masses, hepatosplenomegaly, or hernias. EXTREMITIES: Without any cyanosis, clubbing, or edema and are nontender to palpation bilaterally. PELVIC: Demonstrates normal external genitalia and BUS with normal vaginal mucosa and apex with the uterus being surgically absent. There is a grade 3 cystocele present, and the apex of the vagina and rectum appear to be well supported. There are no masses on bimanual examination. ASSESSMENT AND PLAN: Symptomatic grade 3 cystocele. Options for treatment were discussed with the patient at length, and she has understood and requested definitive surgical repair. We have opted to proceed with anterior colporrhaphy. The risks and complications of the procedure have been thoroughly discussed including the risk for bleeding, bleeding requiring transfusion, infection, and injury to local structures, which primarily include the bladder. She has understood all this and agreed to proceed. MMODL / IJN: [id number] /
[~2023-08-24 07:40] MED LIST changes: +DEXAMETHASONE SOD PHOSPHATE 4 MG/ML 1 ML VIAL IV ONE; +GENTAMICIN 240 MG in SODIUM CHLORIDE 0.9% 100 ML IVPB PRN; +HYDROmorphone 0.5 MG/0.5 ML SYRINGE IVP PRN; -LACTATED RINGERS 1,000 ML IV SCH; +LIDOCAINE 1% (10MG/ML) FOR IV START INTRADERMA PRN; +MIDAZOLAM 2 MG/2 ML VIAL IV PRN; +ONDANSETRON 4 MG/2 ML VIAL IVP ONE
[2023-08-24] MEDS: LACTATED RINGERS 1,000 ML IV SCH ×4 (08:53→23:30)
[2023-08-24] MEDS ORDERED: SUCCINYLCHOLINE CHLORIDE 200 MG/10 ML VIAL IV ONE (09:49)
[2023-08-24] MEDS ORDERED: NEOSTIGMINE 1 MG/ML 10 ML VIAL ONE (09:49)
[2023-08-24] MEDS ORDERED: ROCURONIUM 10 MG/ML (5 ML VIAL) IV ONE (09:49)
[2023-08-24] MEDS ORDERED: PROPOFOL 10 MG/ML 20 ML VIAL IV ONE (09:49)
[2023-08-24] MEDS ORDERED: LIDOCAINE 1% INJ 10MG/ML (20 ML MDV) ONE (09:49)
[2023-08-24] MEDS ORDERED: KETOROLAC 15 MG/ML 1 ML VIAL ONE (09:49)
[2023-08-24] MEDS ORDERED: fentaNYL (PF) 50 MCG/ML 2 ML AMP ONE (09:49)
[2023-08-24] MEDS ORDERED: GLYCOPYRROLATE 0.2 MG/ML 2 ML VIAL ONE (09:49)
[2023-08-24] MEDS ORDERED: ePHEDrine 50 MG/ML 1 ML VIAL ONE (09:49)
[2023-08-24] MEDS ORDERED: VASOPRESSIN 20 UNIT/ML 1 ML VIAL SQ ONE (10:05)
[2023-08-24] MEDS ORDERED: BACITRACIN ZINC 500 UNIT/GM OINT 28.4 GM TUBE TOPICAL ONE (10:25)
[2023-08-24] MEDS ORDERED: KETOROLAC 15 MG/ML 1 ML VIAL IVP PRN (10:40)
[2023-08-24] MEDS ORDERED: Acetaminophen-Codeine 300-30mg TAB PO PRN ×2 (10:40)
[2023-08-24] MEDS ORDERED: METOCLOPRAMIDE 5 MG/ML 2 ML VIAL IVP PRN (10:40)
[2023-08-24] MEDS ORDERED: IBUPROFEN 600 MG TAB PO PRN (10:40)
[2023-08-24] MEDS ORDERED: SIMETHICONE 80 MG CHEWABLE PO PRN (10:40)
[2023-08-24] MEDS ORDERED: diphenhydrAMINE 50 MG/ML 1 ML VIAL IVP PRN (10:40)
--- NOTE | 2023-08-24 10:47 | P.OP ---
Date of Procedure: 08/24/23 Preoperative Diagnosis: #1. Symptomatic grade 3 cystocele Postoperative Diagnosis: Same Procedure(s) Performed: #1. Anterior colporrhaphy Anesthesia: DAVINA Surgeon: Fabricio Cheatham Sweeper Operator Highways #1: Ellen Dumont Estimated Blood Loss (ml): 10 IV fluids (ml): 300 Urine output (ml): 100 Pathology: none sent Condition: stable Disposition: PACU Operative Findings: Preoperative pelvic examination demonstrated evidence of hysterectomy. The remainder the pelvic exam demonstrated no evidence of masses. There was a grade 2+ to 3 cystocele present. Clear urine was seen both before and after the procedure through the catheter. Description of Procedure: The patient was prepped and draped in usual fashion after general endotracheal anesthesia was administered by the anesthesiologist. A weighted speculum was placed and the bladder drained of approximately 40 mL of clear james urine. The uterosacral dimples were grasped with Allis clamps and the vesicovaginal mucosa infused with diluted vasopressin solution. A transverse incision was made from uterosacral to uterosacral using a scalpel and the Allis clamps replaced along the incision. The vesicovaginal mucosa was undermined in the midline with the Metzenbaum scissors and divided to the urethral apex with Allis clamps placed along the margins of the incision. The mucosa was dissected from the underlying tissues sharply and bluntly. After adequate reflection was performed bilaterally, Newton catheter was placed and clear urine demonstrated. Serial Amisha plication stitches were taken from the urethral apex to the apex of the vagina using 2-0 PDS. The intervening redundant vaginal mucosa was trimmed with Metzenbaum scissors and discarded bilaterally. The Newton catheter remained mobile and patent. The remaining open vaginal mucosa was closed with a running locking stitch of 2-0 Vicryl from urethral apex to apex of vagina. The vagina was then packed with one-inch iodophor gauze covered with bacitracin ointment. Estimated blood loss for the entire case was approximately 10 mL. There were no complications. All sponge, instrument, and needle counts were correct. The patient tolerated the procedure well and proceeded to the recovery room in stable condition.
[2023-08-24] MEDS ORDERED: ACETAMINOPHEN TAB 325 MG TAB PO PRN (21:30)
[2023-08-24] MEDS: SENNOSIDES-DOCUSATE SODIUM 1 EACH TAB PO SCH (21:32)
[2023-08-25 06:48] LABS: Basophils % (A) 0 %; Eosinophils # (A) 0.1 k/uL (0-0.7); Eosinophils % (A) 1 %; HCT 37.4 % (34.0-46.0); HGB 12.4 gm/dL (11.4-16.0); Lymphocytes # (A) 1.7 k/uL (1.0-4.8); Lymphocytes % (A) 24 %; MCH 32.3 pg (25.0-35.0); MCHC 33.1 g/dL (31.0-37.0); MCV 97.5 fL (80.0-100.0); Mean Platelet Volume 7.7; Monocytes # (A) 0.4 k/uL (0-1.0); Monocytes % (A) 6 %; Neutrophils # (A) 4.8 k/uL (1.3-7.7); Neutrophils % (A) 67 %; Platelet Count 154 k/uL (150-450); RBC 3.83 m/uL (3.80-5.40); RDW 12.6 % (11.5-15.5); WBC 7.1 k/uL (3.8-10.6)
--- NOTE | 2023-08-25 08:58 | P.DS ---
Providers Expected date of discharge: 08/25/23 Attending physician: Fabricio Cheatham Primary care physician: Kieran Silva MD - Discharge Diagnosis(es) (1) Cystocele Current Visit: Yes Status: Acute Hospital Course: The patient is a 78-year-old 2 para 1011 who was sent to the office with complaints of increasing symptoms of cystocele. She is undergone a hysterectomy in the past and was found with a grade 2+ cystocele. She requested surgical repair and was aware of potential other options for treatment including pessary. She was then taken the operating room where she underwent anterior colporrhaphy and an incompetent fashion. Her postoperative course was entirely unremarkable with vital signs are being stable and her temperature was afebrile throughout. She was tolerating regular diet by the afternoon of day of surgery and was deemed stable for discharge on postoperative day #1. She did undergo voiding trial and thus far has been able to void more than 50% of the volume in her bladder. She complained of no significant pain was requiring only pncy-[id number]-[id number] analgesic pain medications. She was discharged home to follow- up in the office in 2 weeks for recheck in 6 weeks routinely. Discharge instructions included calling for any significantly increased fever, urinary complaints, GI complaints, vaginal bleeding, or anything aside concerned her. She is additionally instructed to do no heavy lifting over the next 6 weeks time and to have nothing in the vagina over the same period of time. She was last instructed to do no driving until off of all pain medications or 2 weeks' time, whichever came first. She understood her instructions and agrees to follow up as noted above. Discharge medications included only any normal home medications as well as [id number] analgesic pain medications. Discharge hemoglobin and hematocrit were 12.4 and 37.4 respectively. Procedures: #1. Anterior colporrhaphy Patient Condition at Discharge: Stable Plan - Discharge Summary Discharge Rx Participant: No New Discharge Prescriptions: No Action Glucosam/Willie-Msm1/C/Romeo/Bosw [Glucosamine-Chondroitin Tablet] 1 tab PO DAILY Vitamin E (Dl,Tocopheryl Acet) [Vitamin E] 180 mg PO DAILY Propylene Glycol/Peg 400/Pf [Systane 0.3-0.4% Eye Drops] 1 each OP DIRECTED Famotidine [Pepcid] 20 mg PO DAILY PRN PRN Reason: Heartburn Cholecalciferol [Vitamin D3 (25 Mcg = 1000 Iu)] 50 mcg PO DAILY Acetaminophen [Tylenol Extra Strength] 500 mg PO DIRECTED PRN PRN Reason: Pain Estradiol Cream [Estrace Cream 0.01%] 1 gm VAGINAL DIRECTED 90 Days #1 each Psyllium Husk 100% [Metamucil Packet] 6 gm PO DAILY Multivit with Calcium,Iron,Min [Women's Multivitamin] 1 each PO DAILY Calcium Carbonate [Calcium] 1,200 mg PO DAILY Grandview 3-6-9 1 dose PO DAILY Cetirizine HCl [Zyrtec] 10 mg PO HS Discharge Medication List Glucosam/Willie-Msm1/C/Romeo/Bosw [Glucosamine-Chondroitin Tablet] 1 tab PO DAILY 11/06/16 [History] Propylene Glycol/Peg 400/Pf [Systane 0.3-0.4% Eye Drops] 1 each OP DIRECTED 11/06/16 [History] Vitamin E (Dl,Tocopheryl Acet) [Vitamin E] 180 mg PO DAILY 11/06/16 [History] Acetaminophen [Tylenol Extra Strength] 500 mg PO DIRECTED PRN 06/27/21 [History] Calcium Carbonate [Calcium] 1,200 mg PO DAILY 06/27/21 [History] Cholecalciferol [Vitamin D3 (25 Mcg = 1000 Iu)] 50 mcg PO DAILY 06/27/21 [History] Famotidine [Pepcid] 20 mg PO DAILY PRN 06/27/21 [History] Multivit with Calcium,Iron,Min [Women's Multivitamin] 1 each PO DAILY 06/27/21 [History] Estradiol Cream [Estrace Cream 0.01%] 1 gm VAGINAL DIRECTED 90 Days #1 each 02/16/23 [Rx] Grandview 3-6-9 1 dose PO DAILY 05/25/23 [History] Psyllium Husk 100% [Metamucil Packet] 6 gm PO DAILY 05/25/23 [History] Cetirizine HCl [Zyrtec] 10 mg PO HS 08/17/23 [History] Follow up Appointment(s)/Referral(s): Fabricio Cheatham MD [STAFF PHYSICIAN] - 2 Weeks Discharge Disposition: HOME SELF-CARE
[2023-08-25] MEDS: SENNOSIDES-DOCUSATE SODIUM 1 EACH TAB PO SCH (10:32)
[2023-08-25] MEDS ORDERED: ACETAMINOPHEN TAB 325 MG TAB PO PRN (10:42)
[2023-08-25 16:19] VITALS: BP 112/68; PULSE 62; RESP 18; TEMP 97.9
== END 2023-08-25 16:40 | disposition home or self-care (01) ==
LOC: OR 07:40 → 4FBP 10:36 → OR 08-25 16:40
PROVIDERS: ATTEND Obstetrics & Gynecology
DX: N81.11 Cystocele, midline (principal); J45.909 Unspecified asthma, uncomplicated; K21.9 Gastro-esophageal reflux disease without esophagitis; I34.1 Nonrheumatic mitral (valve) prolapse; Z90.710 Acquired absence of both cervix and uterus; Z90.89 Acquired absence of other organs; Z79.899 Other long term (current) drug therapy
CPT/HCPCS: 85025; 57240; J1100; J2405; J1580

== ENCOUNTER → 2024-02-22 | Outpatient (CLI) | payer MEDICARE ==
--- NOTE | 2024-02-23 12:48 | MM ---
Reason for Exam: Screening (asymptomatic). Last screening mammogram was performed 12 month(s) ago. Patient History: Menarche at age 13. First Full-Term at age 28. Hysterectomy at age 50. Postmenopausal. Patient has history of breast feeding. 1980, Benign Stereotactic Core Biopsy on the left side. Risk Values: Alma Rosa 5 year model risk: 2.3%. NCI Lifetime model risk: 4.0%. Prior Study Comparison: 11/19/2020 Bilateral Screening Mammogram, [facility]. 02/10/2022 Bilateral Screening Mammogram, [facility]. 02/16/2023 Bilateral MG 3D screening mammo w/cad, [facility]. Tissue Density: The breasts are heterogeneously dense, which may obscure small masses. Findings: Analyzed By CAD. The pattern is symmetrical. Core marker is in the left breast. Benign stable calcifications are present bilaterally. No suspicious groups of microcalcifications, spiculated or lobular masses, architectural distortion or other secondary signs of malignancy are mammographically apparent. Overall Assessment: Benign, BI-RAD 2 Management: Screening Mammogram of both breasts in 1 year. A negative mammogram report should not preclude additional follow up of suspicious palpable abnormalities. Patient should continue monthly self breast exam. A clinical breast exam by your physician is recommended on an annual basis and results should be correlated with mammographic findings. Note on Alma Rosa scores and lifetime risk: 1. A Alma Rosa score greater than 3% is considered moderate risk. If this is the case, consider specialist referral to assess eligibility for a risk reducing agent. 2. If overall lifetime risk for the development of breast cancer is 20% or higher, the patient may qualify for future screening with alternating mammogram and breast MRI. Electronically signed and approved by: Max Ibarra D.O. Radiologis
== END | disposition home or self-care (01) ==
LOC: RADMAMWWP 13:35
PROVIDERS: ATTEND Internal Medicine
DX: Z12.31 Encounter for screening mammogram for malignant neoplasm of breast (principal); Z78.0 Asymptomatic menopausal state
CPT/HCPCS: 77063; 77067

== ENCOUNTER → 2025-02-22 | Outpatient (CLI) | payer MEDICARE ==
--- NOTE | 2025-02-22 14:44 | MM ---
Reason for Exam: Screening (asymptomatic). Last screening mammogram was performed 12 month(s) ago. Patient History: Menarche at age 13. First Full-Term at age 28. Hysterectomy at age 50. Postmenopausal. Patient has history of breast feeding. 1980, Benign Stereotactic Core Biopsy on the left side. Risk Values: Alma Rosa 5 year model risk: 2.2%. NCI Lifetime model risk: 3.7%. Prior Study Comparison: 02/10/2022 Bilateral Screening Mammogram, [facility]. 02/16/2023 Bilateral MG 3D screening mammo w/cad, [facility]. 02/22/2024 Bilateral MG 3D screening mammo w/cad, [facility]. Tissue Density: The breasts are heterogeneously dense, which may obscure small masses. Findings: Analyzed By CAD. There is no suspicious group of microcalcifications or new suspicious mass in either breast. Overall Assessment: Benign, BI-RAD 2 Management: Screening Mammogram of both breasts in 1 year. . Patient should continue monthly self-breast exams. A clinical breast exam by your physician is recommended on an annual basis. This exam should not preclude additional follow-up of suspicious palpable abnormalities. Note on Alma Rosa scores and lifetime risk: 1. A Alma Rosa score greater than 3% is considered moderate risk. If this is the case, consider specialist referral to assess eligibility for a risk reducing agent. 2. If overall lifetime risk for the development of breast cancer is 20% or higher, the patient may qualify for future screening with alternating mammogram and breast MRI. [facility], , 02/22/2025 2:41 PM. Electronically signed and approved by: Riaz Schumacher M.D. Radiologis
--- NOTE | 2025-02-23 19:02 | BD ---
EXAMINATION TYPE: Axial Bone Density DATE OF EXAM: 02/22/2025 CLINICAL HISTORY: 79 years old Female. ICD-10 CODE: M85.9 DISORDER OF BONE , Additional History: Height: 63 Weight: 108.3 FRAX RISK QUESTIONS: Alcohol (3 or more units per day): no Family History (Parent hip fracture): no Glucocorticoids (More than 3mos): no (Ex: prednisone, prednisolone, methylprednisolone, dexamethasone, and hydrocortisone). History of Fracture in Adulthood: no Secondary Osteoporosis: 1. Type 1 Diabetes: no 2. Hyperthyroidism: no 3. Menopause before 45: no 4. Malnutrition: no 5. Chronic liver disease: no Rheumatoid Arthritis: no Current Tobacco Use: no RISK FACTORS HISTORY OF: History of Wrist Fracture: left When: as a child Surgery to Spine/Hip(right/left)/Wrist (right/left): no EXAM MEASUREMENTS: Bone mineral densitometry was performed using the EyeLock System. Bone mineral density as measured about the Lumbar spine is: ----- L1-L4(G/cm2): 1.584 T Score Values are as follows: ----- L1: 2.6 ----- L2: 2.7 ----- L3: 3.1 ----- L4: 4.6 ----- L1-L4: 3.4 Z Score Values are as follows: ----- L1: 5.0 ----- L2: 5.1 ----- L3: 5.5 ----- L4: 7.0 ----- L1-L4: 5.7 Bone mineral density has: increased 0.2 % since study of: 02.10.2022 Bone mineral density about the R hip (g/cm2): 0.947 Bone mineral density about the L hip (g/cm2): 1.007 T Score values are as follows: -----R Neck: -1.0 -----L Neck: -1.2 -----R Total: -0.5 -----L Total: 0.0 Z Score values are as follows: -----R Neck: 1.5 -----L Neck: 1.3 -----R Total: 1.9 -----L Total: 2.3 Bone mineral density has: decreased -1.2 % since study of: 4.5.2021 FRAX%s: The graph provided illustrates a 10.0% chance for a major osteoporotic fx and a 2.3% chance f or the hips probability for fx in 10 years time. IMPRESSION: Osteopenia (T Score between -2.5 and -1). There is slightly increased risk of fracture and the patient may be considered for treatment. Re-Screen 2-5 years. NOTE: T-SCORE=SD OF THE YOUNG ADULT MEAN. [facility], Workstation: [facility]ENTERRe-Sec TechnologiesRUSH, 02/23/2025 7:00 PM
== END | disposition home or self-care (01) ==
LOC: RADMAMWWP 13:47
PROVIDERS: ATTEND Family Medicine
DX: Z12.31 Encounter for screening mammogram for malignant neoplasm of breast (principal); R92.333 Mammographic heterogeneous density, bilateral breasts; M85.89 Other specified disorders of bone density and structure, multiple sites; Z78.0 Asymptomatic menopausal state
CPT/HCPCS: 77063; 77067; 77080